=== PATIENT | male | born 1970 | race Hispanic/Latino ===

== ENCOUNTER 2020-11-22 10:42 | Emergency (ER) | payer SELFPAY ==
[2020-11-22] VITALS (20 sets, daily range): BP systolic 160–181; BP diastolic 101–117; PULSE 57–84; RESP 14–29; TEMP 36.9; O2SAT 96–100
--- NOTE | ~2020-11-22 | XR_ITS ---
XR chest 2V DATE: 11/22/2020 11:32 INDICATION: Chest pain, shortness of breath. Throat tightness. Intermittent fevers. TECHNIQUE: PA and lateral views COMPARISON: None FINDINGS: Normal heart size. No hilar or mediastinal enlargement. No pulmonary infiltrate or consolid ation, pleural effusion or pulmonary vascular congestion or pneumothorax. There is mild scoliosis and mild degenerative change of the thoracic spine. IMPRESSION: No active cardiopulmonary disease Reviewed, dictated and finalized at location B.
--- NOTE | 2020-11-22 10:47 | ECG_ITS ---
Measurements Intervals [place] Rate: 70 P: 51 [place]: 157 QRS: -5 QRSD: 101 T: 54 QT: 407 QTc: 440 Interpretive Statements SINUS RHYTHM BORDERLINE R WAVE PROGRESSION, ANTERIOR LEADS BORDERLINE ECG Electronically Signed On 11-22-2020 13:15:20 CDT by Bran Thomas D.O.
[2020-11-22 11:09] LABS: Basophils Absolute Auto 0.1 K/mm3 (0.0-0.1); Basophils Percent Auto 0.8 % (0.2-1.2); Eosinophils Absolute Auto 1.2 K/mm3 (0-0.3); Hematocrit 43.4 % (42.0-52.0); Hemoglobin 14.5 g/dL (14.0-18.0); Immature Granulocyte Absolute 0.04 K/mm3 (0.00-0.031); Immature Granulocyte Percent A 0.3 % (0-0.5); Lymphocytes Percent Auto 13.8 % (18.3-44.2); Mean Corpuscular HGB Conc 33.4 g/dl (32-36); Mean Corpuscular Hemoglobin 30.1 pg (26-34); Mean Platelet Volume 10.1 fl (7.4-10.4); Monocytes Absolute Auto 0.5 K/mm3 (0.1-0.6); Monocytes Percent Auto 4.1 % (2.6-8.5); Neutrophils Absolute Auto 8.2 K/mm3 (1.3-6.7); Platelet Count Result 262 k/mm3 (150-375); Red Blood Count 4.82 M/mm3 (4.6-6.20); Red Cell Distribution Width 12.1 % (11.5-14.5); White Blood Count 11.6 K/mm3 (4.5-10.0)
[2020-11-22 11:23] LABS: Partial Thromboplastin Time 30.3 SECONDS (22.3-36.8); Prothrombin Time 13.4 Seconds (11.1-14.7)
[2020-11-22] MEDS: ASPIRIN 81 MG CHEWABLE TABLET 324 MG PO (12:30)
[2020-11-22] MEDS: ALBUTEROL SULFATE NEB 2.5 MG/0.5 ML INH 5 MG INHALATION (12:36)
[2020-11-22] MEDS: IPRATROPIUM BR 0.02% INH SOLN 0.5 MG/2.5 ML VIAL INHALATION (12:36)
--- NOTE | 2020-11-22 12:42 | ED.GENADULT ---
HPI - General Adult General Chief complaint: Chest Pain Stated complaint: chest pain Time Seen by Provider: 11/22/20 11:49 History of Present Illness HPI narrative: Patient is a 50-year-old male who presents to the ER with reports of body aches, chest pain, and cough. Reports several days ago he developed cough that is productive of phlegm. He has been having fevers and body aches since then. Thinks because he has been coughing so frequently he has developed achiness in his back and chest. He has been seen and swabbed for COVID-19 which was negative. He has not been on any antibiotics. He reports he has been taking some [place] drugs from the [employer] [facility] for his symptoms but cannot tell me the names. He does take carvedilol for his hypertension. No exertional chest pain. Mild SOA with exertion. Related Data Home Medications Medication Instructions Recorded Confirmed atorvastatin 11/22/20 carvedilol 11/22/20 Allergies Allergy/AdvReac Type Severity Reaction Status Date / Time No Known Allergies Allergy Verified 11/22/20 12:26 Course Course Emergency Course: Troponin negative x2. Breathing better with nebulizer treatment. Discussed treatment plan and patient verbalized understanding. Will follow up with PCP. Vital Signs Vital signs: Vital Signs Temperature 98.4 F 11/22/20 10:49 Pulse Rate 71 11/22/20 10:49 Respiratory Rate 20 11/22/20 10:49 Blood Pressure 179/117 H 11/22/20 10:49 Pulse Oximetry 100 11/22/20 10:49 Temperature 98.4 F 11/22/20 10:49 Pulse Rate 70 11/22/20 12:45 Respiratory Rate 16 11/22/20 12:45 Blood Pressure 181/111 H 11/22/20 12:00 Pulse Oximetry 99 11/22/20 12:36 Medical Decision Making Vital Signs Vital Signs: Vital Signs Temperature 98.4 F 11/22/20 10:49 Pulse Rate 71 11/22/20 10:49 Respiratory Rate 20 11/22/20 10:49 Blood Pressure 179/117 H 11/22/20 10:49 Pulse Oximetry 100 11/22/20 10:49 Temperature 98.4 F 11/22/20 10:49 Pulse Rate 70 11/22/20 12:45 Respiratory Rate 16 11/22/20 12:45 Blood Pressure 181/111 H 11/22/20 12:00 Pulse Oximetry 99 11/22/20 12:36 Lab Data Result diagrams: 11/22/20 11:00 11/22/20 11:00 Labs: Lab Results 11/22/20 11/22/20 11/22/20 Range/Units 11:00 11:00 11:00 WBC 11.6 H (4.5-10.0) K/mm3 RBC 4.82 (4.6-6.20) M/mm3 Hgb 14.5 (14.0-18.0) g/dL Hct 43.4 (42.0-52.0) % MCV 90.0 (80-100) fl MCH 30.1 (26-34) pg MCHC 33.4 (32-36) g/dl RDW 12.1 (11.5-14.5) % Plt Count 262 (150-375) k/mm3 MPV 10.1 (7.4-10.4) fl Immature Gran % (Auto) 0.3 (0-0.5) % Neut % (Auto) 71.0 (45.5-73.1) % Lymph % (Auto) 13.8 L (18.3-44.2) % [place]anco % (Auto) 4.1 (2.6-8.5) % Eos % (Auto) 10.0 H (0-4.4) % Baso % (Auto) 0.8 (0.2-1.2) % Lymph # (Auto) 1.60 (0.9-3.2) K/mm3 [place] # (Auto) 0.5 (0.1-0.6) K/mm3 Eos # (Auto) 1.2 H (0-0.3) K/mm3 Baso # (Auto) 0.1 (0.0-0.1) K/mm3 Abs Immat Gran (auto) 0.04 H (0.00-0.031) K/mm3 Absolute Neuts (auto) 8.2 H (1.3-6.7) K/mm3 Absolute Nucleated RBC 0.0 (0.0-0.012) K/mm3 Nucleated RBC % 0.0 (0.0-0.2) % PT 13.4 (11.1-14.7) Seconds INR 1.0 APTT 30.3 (22.3-36.8) SECONDS Sodium 141 (137-145) mmol/L Potassium 3.7 (3.4-5.0) mmol/L Chloride 106 (98-107) mmol/L Carbon Dioxide 25 (22-30) mmol/L Anion Gap 10 (8-16) mmol/L BUN 21 H (9-20) mg/dL Creatinine 1.00 (0.7-1.3) mg/dL Estim Creat Clear Calc 77 ml/min Estimated GFR > 60 (59 - ) Glucose 136 H (65-110) mg/dL Calcium 9.3 (8.4-10.2) mg/dL Troponin I < 0.012 (0.000-0.034) ng/mL 11/22/20 Range/Units 13:44 WBC (4.5-10.0) K/mm3 RBC (4.6-6.20) M/mm3 Hgb (14.0-18.0) g/dL Hct (42.0-52.0) % MCV (80-100) fl MCH (26-34) pg MCHC (32-36) g/dl RDW (11.5-14.5) % Plt Count (150-375) k/mm3 MP
[2020-11-22 13:03] LABS: Anion Gap 10 mmol/L (8-16); Blood Urea Nitrogen 21 mg/dL (9-20); Calcium 9.3 mg/dL (8.4-10.2); Carbon Dioxide 25 mmol/L (22-30); Chloride 106 mmol/L (98-107); Estimated CRCL calculation 77 ml/min; Estimated Glomerular Filt Rate > 60; Glucose 136 mg/dL (65-110); Potassium 3.7 mmol/L (3.4-5.0); Sodium 141 mmol/L (137-145)
[2020-11-22 13:15] LABS: Troponin I < 0.012 ng/mL (0.000-0.034)
[2020-11-22] MEDS: KETOROLAC (*BKC) 60 MG/2 ML VIAL (13:27)
[2020-11-22 14:23] LABS: Troponin I < 0.012 ng/mL (0.000-0.034)
== END 2020-11-22 15:21 | disposition home or self-care (01) ==
PROVIDERS: Emergency Medicine; Emergency Provider Emergency Medicine
DX: J40 Bronchitis, not specified as acute or chronic (principal); R94.31 Abnormal electrocardiogram [ECG] [EKG]
CPT/HCPCS: 36415; 71046; 80048; 84484; 85025; 85610; 85730; 93005; 94640; 96374; 99284; A9270; J1885